=== PATIENT | male | born 1975 | race Caucasian/White ===

== ENCOUNTER 2018-05-18 16:47 | Emergency (ER) | payer SELFPAY ==
[~2018-05-18] VITALS: Ht 170.2 cm; Wt 113.0 kg
[2018-05-18 18:25] VITALS: BP 111/65
[2018-05-18] MEDS ORDERED: ACETAMINOPHEN 325MG TABLET PO STA (18:30)
[2018-05-18 19:31] LABS: BASOPHILS % 1.1 % (0.0-2.0); EOSINOPHILS % 1.9 % (0.0-5.0); HEMATOCRIT. 45.9 % (42.0-52.0); LYMPHOCYTES % 22.1 % (20.0-50.0); MEAN CORPUSCULAR HEMOGLOBIN 28.8 pg (28.0-32.0); MEAN CORPUSCULAR VOLUME 88.2 fL (80.0-94.0); MEAN PLATELET VOLUME 9.6 fl (7.4-10.4); MONOCYTES % 4.9 % (2.0-8.0); PLATELET 227 x1000/uL (130-400); RED BLOOD CELL COUNT 5.21 mill/uL (4.7-6.1); RED CELL DISTRIBUTION WIDTH 14.3 % (11.6-14.6)
[2018-05-18 19:37] LABS: INR 1.1
[2018-05-18 19:38] LABS: CHLORIDE 111 mEq/L (98-107)
[2018-05-18 19:39] LABS: CLARITY URINE CLEAR (CLEAR); COLOR URINE YELLOW (YELLOW); KETONES URINE TRACE (NEGATIVE); LEUKOCYTE ESTERASE URINE NEGATIVE (NEGATIVE); NITRITE URINE NEGATIVE (NEGATIVE); OCCULT BLOOD URINE NEGATIVE (NEGATIVE); PH URINE 6.5 (4.5-8.0); PROTEIN URINE NEGATIVE (NEGATIVE); SPECIFIC GRAVITY URINE 1.019 (1.005-1.030); UROBILINOGEN URINE 0.2 E.U./dL (0.2-1.0)
[2018-05-18 19:48] LABS: CREATINE KINASE 150 IU/L (39-308)
== END 2018-05-18 22:56 | disposition home or self-care (01) ==
LOC: ER 16:47
DX: T75.4XXA Electrocution, initial encounter (principal); M54.2 Cervicalgia; H53.8 Other visual disturbances; R11.2 Nausea with vomiting, unspecified; R20.2 Paresthesia of skin; W86.8XXA Exposure to other electric current, initial encounter; Y93.89 Activity, other specified; Y92.69 Other specified industrial and construction area as the place of occurrence of the external cause; Y99.8 Other external cause status
CPT/HCPCS: 36415; 80053; 81003; 82550; 85025; 85610; 93005; 99285